=== PATIENT | male | born 1975 | race African-American/Black ===

== ENCOUNTER 2016-11-10 00:39 | Emergency (ER) | payer MEDICARE, MEDICAID | END 2016-11-10 01:44 | disposition home or self-care (01) | LOC: D.ER 00:39 | DX: M51.36 Other intervertebral disc degeneration, lumbar region (principal); F17.200 Nicotine dependence, unspecified, uncomplicated; I10 Essential (primary) hypertension; E11.9 Type 2 diabetes mellitus without complications ==

== ENCOUNTER → 2016-11-26 14:02 | Outpatient (CLI) | payer MEDICARE, MEDICAID | END | disposition home or self-care (01) | LOC: D.MRI 14:00 | DX: M54.16 Radiculopathy, lumbar region (principal) ==

== ENCOUNTER 2017-04-30 19:55 | Emergency (ER) | payer MEDICARE, MEDICAID | END 2017-04-30 22:28 | disposition home or self-care (01) | LOC: D.ER 19:55 | DX: J20.9 Acute bronchitis, unspecified (principal); J06.9 Acute upper respiratory infection, unspecified; H66.91 Otitis media, unspecified, right ear; F17.200 Nicotine dependence, unspecified, uncomplicated; I10 Essential (primary) hypertension; M51.36 Other intervertebral disc degeneration, lumbar region; E11.9 Type 2 diabetes mellitus without complications ==

== ENCOUNTER 2017-08-24 12:35 | Observation (INO) | payer MEDICARE, MEDICAID ==
[~2017-08-24] VITALS: Ht 172.7 cm; Wt 107.0 kg
--- NOTE | ~2017-08-24 | HEMODYNAMI ---
PATIENT:DEMETRI CAMPBELL MEDICAL RECORD: [id number] : 71 LOCATION:[address] [id number] ADMISSION DATE: 08/24/17 Generatedon:08/26/201713:05 Patient name: DEMETRI CAMPBELL Patient #: [id number] SSN: : 1975 Date of study: 08/26/2017 Page: Of Hemodynamic Procedure Report Patient Data Patient Demographics Procedure consent was obtained First Name: DEMETRI Gender: Male Last Name: ADRIAN : 1975 Middle Initial: L Age: 41 year(s) Patient #: [id number] Race: Black Additional ID: [id number] Contact details Address: [address] [place] [address] State: [place] City: [facility] Zip code: [address] Past Medical History Allergies: No known allergies Admission Admission Data Admission Date: 08/24/2017 Admission Time: 14:32 Room #: D2123 Lab Results Lab Result Date: 08/26/2017 Lab Result Time: 0:00 Biochemistry Name Units Result Min Max BUN mg/dl 10 --(-*--)-- 7 18 Creatinine mg/dl 0.9 --(-*--)-- 0.6 1.3 CBC Name Units Result Min Max Hemoglobin g/dl 14.6 --(-*--)-- 13.5 17.5 Procedure Procedure Types Cath Procedure Diagnostic Procedure [facility] w/Coronaries FFR/IVUS Intra-Coronary IVUS Initial PCI Procedure Coronary Stent Coronary Stent Initial Procedure Description Procedure Date Procedure Date: 08/26/2017 Procedure Start Time: 12:48 Procedure End Time: 13:04 Procedure Staff Name Function Zafar Lloyd MD Performing Physician [place] Bro RT Monitor Celio Ceja RN Nurse Gaetano Morgan RT Scrub Procedure Data Cath Procedure Fluoroscopy Diagnostic fluoroscopy Total fluoroscopy Time: 4.2 time: 4.2 min min Diagnostic fluoroscopy Total fluoroscopy dose: 722 dose: 722 mGy mGy Contrast Material Contrast Material Type Amount (ml) Isovue 300 44 Entry Location Entry Primary Successful Side Size Upsize Upsize Entry Closure Bartlett ccessful Closure Location (Fr) 1 (Fr) 2 (Fr) Remarks Device Remarks Radial Right 6 Fr Mechanical artery Short Compression Estimated blood loss: 10 ml Diagnostic catheters Device Type Used For End Catheter Placement DIAGNOSTIC [place] 110cm 5 Procedure Fr catheter ([id number]) Procedure Complications No complications Procedure Medications Medication Administration Route Dosage Oxygen NC 2 l/min Lidocaine 2% added to field 20 Heparin Flush Bag added to field 2 bags (1000units/500ml NS) 0.9% NaCl I.V. 100 ml/hr Radial Cocktail added to field 1 syringe (Verapomil 2mg/Nitro 400mcg/Heparin 1500units) Radial Cocktail I.A. 1 syringe (Verapomil 2mg/Nitro 400mcg/Heparin 1500units) Heparin Bolus I.V. 4000 units Versed I.V. 2 mg Fentanyl I.V. 100 mcg Hemodynamics Rest HGB: 14.6 (g/dl) Heart Rate: 69 (bpm) Snapshots Pre Cath Intra NCS Post Cath Vital Signs Time Heart Resp SPO2 etCO2 NIBP (mmHg) Rhythm Pain Sedation Rate (ipm) (%) (mmHg) Status Level (bpm) 12:38:21 69 19 99 25.5 150/97(126) NSR 0 (11) 10(A) , No pain 12:43:16 71 17 100 36 147/94(121) NSR 0 (11) 10(A) , No pain 12:48:03 76 14 99 39 137/88(115) NSR 0 (11) 9(A) , No pain 12:52:56 85 12 93 36 129/80(106) NSR 0 (11) 9(A) , No pain 12:57:40 89 13 94 39.8 130/80(105) NSR 0 (11) 10(A) , No pain 13:02:31 86 16 95 37.5 124/79(105) NSR 0 (11) 10(A) , No pain Medications Time Medication Route Dose Verified Delivered Reason Note s Effectiveness by by 12:39:05 Oxygen NC 2 l/min Zafar Pickens used for Prema Ceja key cutter 12:39:15 Lidocaine 2% added 20ml Zafar Stephen for local to vial Prema Lloyd MD anesthetic field 12:39:24 Heparin Flush added 2 bags Zafar Stephen used for Bag to Prema Lloyd MD procedure (1000units/500ml field NS) 12:39:34 0.9% NaCl I.V. 100 Zafar Pickens Per physician ml/hr Prema Ceja RN 12:39:43 Radial Cocktail added 1 Zafar Stephen for (Verapomil to syringe Prema Lloyd MD vasodilation 2mg/Nitro field 400mcg/Heparin 1500units) 12:41:44 Versed I.V. 2 mg Zafar Pickens for sedation Prema Ceja RN 12:41:57 Fentanyl I.V. 100 mcg Zafar Pickens for sedation Prema Ceja RN 12:48:35 Radial Cocktail I.A. 1 Zafar Stephen for (Verapomil syringe Prema Lloyd MD vasodilation 2mg/Nitro 400mcg/Heparin 1500units) 12:58:42 Heparin Bolus I.V. 4000 Zafar Pickens for units Prema Ceja anticoagulation pail bailer Log Time Note 12:22:09 Signed procedure consent form obtained from patient. 12:22:11 Time tracking: Regular hours (M-F 7:00 - 5:00) 12:22:14 Plan of Care:Hemodynamics will remain stable., Cardiac rhythm will remain stable., Comfort level will be maintained., Respiratory function will remain adequate., Patient/ family verbilizes understanding of procedure., Procedure tolerated without complication., Recovers from procedure without complications.. 12:22:23 H&P Date Dictated: 08/25/2017 Within 30 days and on chart., H&P Addendum completed by physician on day of procedure. (MUST COMPLETE FOR ALL OUTPATIENTS). 12:23:09 Lab Result : BUN 10 mg/dl 12:23:09 Lab Result : Hemoglobin 14.6 g/dl 12:23:09 Lab Result : Creatinine 0.9 mg/dl 12:23:46 Gaetano SANTOS(R) sent for patient. Start room use. 12:34:24 Patient received from PCU to CCL 1 Alert and oriented. Tansferred to table in Supine position. 12:34:25 Warm blankets applied, and dilma hugger turned on for patient comfort. 12:34:26 Correct patient and procedure confirmed by team. 12:34:26 ECG and BP/O2 sat monitors applied to patient. 12:37:13 Vital chart was started 12:38:47 Baseline sample Acquired. 12:38:52 Rhythm: sinus rhythm 12:38:53 Full Disclosure recording started 12:38:54 Pre-procedure instructions explained to patient. 12:38:54 Pre-op teaching completed and patient verbalized understanding. 12:38:56 Family in patients room. 12:38:57 Patient NPO since Midnight. 12:39:02 Patient allergic to No known allergies 12:39:05 Oxygen 2 l/min NC was administered by Celio Ceja RN; used for procedure; 12:39:05 Is the patient allergic to Iodine/contrast media? No. 12:39:06 Is patient on blood thinner?Yes 12:39:08 ACC The patient was administered the following blood thiners within the last 24 hours: ACCPlavix 12:39:09 Patient diabetic? Yes. 12:39:11 If diabetic: On Metformin? Yes 12:39:15 Lidocaine 2% 20ml vial added to field was administered by Zafar Lloyd MD; for local anesthetic; 12:39:23 PT DOES NOT KNOW LAST DOSE 12:39:24 Heparin Flush Bag (1000units/500ml NS) 2 bags added to field was administered by Zafar Lloyd MD; used for procedure; 12:39:28 Previous problem with sedation/anesthesia? No ? 12:39:32 Snore? Yes 12:39:34 0.9% NaCl 100 ml/hr I.V. was administered by Celio Ceja RN; Per physician; 12:39:34 Sleep apnea? No 12:39:39 Deviated septum? No 12:39:39 Opens mouth fully? Yes 12:39:40 Sticks out tongue? Yes 12:39:42 Airway obstruction? No ? 12:39:43 Radial Cocktail (Verapomil 2mg/Nitro 400mcg/Heparin 1500units) 1 syringe added to field was administered by Zafar Lloyd MD; for vasodilation; 12:39:44 Dentures? No ? 12:39:46 Modified Yandel's test Ulnar < 7 seconds 12:39:48 Patient pain scale 0/10 ?. 12:39:55 IV patent on arrival in right forearm with 0.9% NaCl at KVO. 12:39:58 Lab results completed and on chart. 12:40:00 Right Radial & Right Groin area was prepped with chlora-prep and draped in sterile fashion 12:40:01 Alarms reviewed by R. N. 12:40:01 Sharps counted by scrub and verified by R.N. 12:40:02 --------ALL STOP TIME OUT------ 12:40:03 Final Timeout: patient, procedure, and site verified with staff and physician. All members of the team are in agreement. 12:40:05 Right Radial & Right Groin site verified by team. 12:40:07 Physical assessment completed. ASA score P 2 - A patient with mild systemic disease as per Zafar Lloyd MD. 12:40:11 Sedation plan: IV Moderate Sedation Medication:Versed, Fentanyl 12:41:44 Versed 2 mg I.V. was administered by Celio Ceja RN; for sedation; 12:41:57 Fentanyl 100 mcg I.V. was administered by Celio Ceja RN; for sedation; 12:42:23 Use device set Radial Dx or PCI 12:42:24 ACIST Syringe (66988) opened to sterile field. 12:42:25 Bag Decanter (2001S) opened to sterile field. 12:42:29 Tegaderm 4 x 4 (1626W) opened to sterile field. 12:42:29 ACIST Manifold (74246) opened to sterile field. 12:42:30 ACIST Hand Control (13816) opened to sterile field. 12:42:31 Medline Cath Pack ([id number]) opened to sterile field. 12:42:31 DIAGNOSTIC WIRE .035 260cm J wire (244714) opened to sterile field. 12:42:32 MBrace Wrist Support ([id number]) opened to sterile field. 12:42:33 SHEATH 6Fr Prelude Radial ([id number]) opened to sterile field. 12:48:03 Zero performed for pressure channel P1 12:48:08 Procedure started. 12:48:13 Local anesthetic to right radial artery with Lidocaine 2% by Zafar Lloyd MD.INITIAL ACCESS ONLY 12:48:22 A 6 Fr Short sheath was inserted into the Right Radial artery 12:48:35 Radial Cocktail (Verapomil 2mg/Nitro 400mcg/Heparin 1500units) 1 syringe I.A. was administered by Zafar Lloyd MD; for vasodilation; 12:48:49 A DIAGNOSTIC [place] 110cm 5 Fr catheter (965167) was advanced over the wire and used for Procedure. 12:49:51 GLIDE WIRE .025 ANGLED (QG3041) opened to sterile field. 12:50:18 GLIDE WIRE USED TO ADVANCE CATHETER 12:51:11 LV gram done using CARMICHAEL 12:51:13 Injector settings: Ml/sec: 7, Volume: 15, 12:51:25 EF : 60 % 12:51:56 LCA angiography performed. 12:52:42 RCA angiography performed. 12:53:19 Catheter removed. 12:53:31 INFLATOR Merit BasixCompak (EF0334) opened to sterile field. 12:53:31 CHOICE PT Extra Support 182cm wire ([id number]) opened to sterile field. 12:53:34 Barnhart Sycuan Eagleye IVUS Catheter (51465I) opened to sterile field. 12:54:36 GUIDE 6FR AR 2.0 catheter ([id number]) opened to sterile field. 12:54:41 6 Fr AR 2 guide catheter was inserted over the wire 12:55:08 CHOICE ES 182 wire advanced. 12:55:21 Wire advanced across lesion. 12:55:45 IVUS catheter advanced over wire. 12:56:19 IVUS pass to RCA lesion performed. 12:56:38 IVUS catheter removed over wire. 12:58:42 Heparin Bolus 4000 units I.V. was administered by Celio Ceja RN; for anticoagulation; 12:59:15 Place stent Inflation Number: 1 A ZHAO RX 5.0 x 18 stent ([id number]) was prepped and advanced across the Mid RCA. The stent was deployed at 11 HIPOLITO for 0:10 (min:sec). 12:59:36 Stent catheter was removed intact over wire. 12:59:37 Wire removed. 12:59:37 Guide catheter removed. 13:00:20 Procedure ended.(Physican Out) 13:00:29 TR BAND Standard ([id number]) opened to sterile field. 13:00:39 Sheath removed intact; hemostasis achieved with Mechanical Compression to the Right Radial artery. 13:01:39 Fluoroscopy time 04.20 minutes. 13:01:42 Fluoroscopy dose: 722 mGy 13:01:42 Flurop Dose total: 722 13:01:45 Contrast amount:Isovue 300 44ml. 13:01:46 Sharps counted by scrub and verified by R.N. 13:01:48 TR band inflated with 10cc of air. 13:01:51 Post-procedure physical assessment completed. ASA score P 2 - A patient with mild systemic disease as per Zafar Lloyd MD. 13:01:55 Post procedure rhythm: sinus rhythm 13:01:57 Estimated blood loss: 10 ml 13:01:58 Post procedure instruction explained to patient.Patient verbalizes understanding. 13:01:59 Patient needs reinforcement of post procedure teaching. 13:02:28 Procedure type changed to Cath procedure, Diagnostic procedure, LHC, LHC w/Coronaries, FFR/IVUS, Intra-Coronary IVUS Initial, PCI procedure, Coronary Stent, Coronary Stent Initial 13:04:12 Procedure and supply charges have been captured, reviewed, submitted and are correct. 13:04:15 Procedure Complication : No complications 13:04:16 Vital chart was stopped 13:04:17 See physician's report for complete and final results. 13:04:21 Report given to PCU. 13:04:23 Patient transfered to PCU with Bed. 13:04:25 Procedure ended. 13:04:25 Full Disclosure recording stopped 13:04:27 End room use (Document Last) Intervention Summary Intervention Notes Time ActionType Lesion and Equipment Used Action# Pressure Duration Attributes 12:59:15 Place stent Mid RCA ZHAO RX 5.0 x 1 11 00:10 18 stent ([id number]) Device Usage Item Name Manufacture Quantity Catalog Number Hospital Part Current Minimal Lot# / Charge Number Stock Stock Serial# Code ACIST Syringe Acist 1 15602 674872 777926 010267 20 (20138) [employer] Inc Bag Decanter Microtek 1 2001S 334429 28842 300601 5 () Medical Inc. Tegaderm 4 x 4 3M 1 1626W 860766 755409 260092 5 (1626W) ACIST Manifold Acist 1 43116 882111 566760 531662 5 (37859) [employer] Systems Inc ACIST Hand Acist 1 24032 761687 091211 145347 5 Control (29280) Medical Systems Inc Medline Cath Cardinal 1 [id number] 709112 28470 887293 5 [facility] ([id number]) DIAGNOSTIC WIRE St Miguel A 1 947680 253247 122420 317647 30 .035 260cm J wire (028755) MBrace Wrist Advanced 1 140-0250-00 065218 72633 450144 5 Support Vascular ([id number]) Dynamics SHEATH 6Fr Merit 1 [id number] 397549 549560 531209 5 Prelude Radial Medical ([id number]) DIAGNOSTIC Terumo 1 40-5013 305428 808079 220417 5 [place] 110cm 5 Fr catheter (883166) GLIDE WIRE .025 Terumo 1 RD3361 056875 866532 5 ANGLED (NK3247) INFLATOR Merit Merit 1 PY9255 489841 566002 485195 15 BasixZaranga Medical (XW5779) CHOICE PT Extra [place] 1 [id number] 390317 340016 383598 5 Support 182cm Scientific wire ([id number]) Barnhart Barnhart 1 15919S 466729 392041 663116 8 Sycuan Eagleye IVUS Catheter (11521S) GUIDE 6FR AR Medtronic 1 [id number] 077902 77543 885284 1 2.0 catheter (WS9UQ83) ZHAO RX 5.0 x Medtronic 1 [id number] 340702 6956854 524412 5 [id number] 18 stent ([id number]) TR BAND Terumo 1 [id number] 001852 550754 626185 40 Standard ([id number]) Signature Audit [place] Stage Time Signature Unsigned Intra-Procedure 08/26/2017 Jamaica Bro 1:05:20 PM RT(R) Signatures Monitor : Jamaica Bro Signature : RT Date : Time : [facility] [address] [place] [address]
--- NOTE | ~2017-08-24 | CN ---
PATIENT NAME:DEMETRI BRIGGS MEDICAL RECORD: [id number] : 71 LOCATION:[address].2123 ADMIT DATE: 08/24/17 ACCOUNT: [id number] CONSULTING PHYSICIAN: LATISHA AMADOR MD REFERRING PHYSICIAN: GREGORIO DELUNA MD DATE OF CONSULTATION: 08/25/2017 DIAGNOSES: 1. Chest pain compatible with angina. 2. Family history of coronary disease. 3. Hypertension. 4. Hyperlipidemia. 5. Smoking history. HISTORY: Mr. Briggs has had multiple cardiac risk factors as above including very strong family history of coronary disease. He began having chest pain yesterday. He has continued to have episodes of chest pain today, a relatively typical anginal pain with a pressure-like band sensation across the anterior chest. REVIEW OF SYSTEMS: The patient reports easy bruising but reports no swollen glands. The patient reports no fever, no night sweats, no significant weight gain, no significant weight loss. No significant exercise tolerance. The patient reports no dry eyes, no irritation, no vision change. Patient reports no difficulty hearing and no ear pain. Patient reports no frequent nose bleeds or nose and sinus problems. Patient reports on arm pain on exertion. No shortness of breath while lying down. No history of heart murmur. Patient reports no cough, no wheezing or coughing up blood. Patient reports no abdominal pain, no vomiting. Normal appetite. No diarrhea and not vomiting blood. No nausea and no constipation. Patient reports no incontinence. No difficulty urinating. No hematuria. No increased frequency. Patient reports no muscle aches. No weakness, no arthralgias, no back pain. No swelling of the extremities. Patient reports no abnormal mole, no jaundice, no rashes. Reports no loss of consciousness. No weakness and no numbness. No seizures, dizziness, or headaches. The patient reports no depression, no sleep disturbance, feeling safe in a relationship and no alcohol abuse. Patient reports on fatigue. Reports no runny nose or sinus pressure. No itching, no hives, and no frequent sneezing. PHYSICAL EXAMINATION: GENERAL APPEARANCE: Well-nourished, well-developed, appears stated age. Level of distress, comfortable. PSYCHIATRIC: Mental status, alert, normal affect. Orientation, oriented to time, place and person. EYES: Lids and conjunctiva, noninjected. No discharge, no pallor. ENT: Lips, teeth, gums, normal dentition. Oropharynx, no cyanosis, no pallor. NECK: Carotid arteries, bilateral normal upstroke, no bruits, no thrills. JUGULAR VEINS: No jugular venous pressure or distention. CERVICAL LYMPH NODES: Nontender, nonenlarged. THYROID: Not enlarged. Nontender. No nodules. LUNGS: Respiratory effort, unlabored. CHEST: Normal curvature. No thoracic deformity. No chest wall tenderness. Percussion, resonant. Auscultation, clear. No wheezes, no rales, no rhonchi. CARDIOVASCULAR: Precordial exam, nondisplaced. No heaves or pericardial thrills. Rate and rhythm, regular. Heart sounds, normal S1, normal S2. No S3, CONSULT REPORT [id number] SERMONS,DIMETRIUS L no gallop, no rub. Systolic murmur, not heard. Diastolic murmur, not heard. EXTREMITIES: No cyanosis, no edema. Peripheral pulses, full and equal in all extremities, except as noted. No bruits appreciated. ABDOMEN: Soft, nondistended. Normal aorta. No bruit. Nontender. No masses. Liver, nontender, no hepatomegaly. Spleen, nontender, no splenomegaly. MUSCULOSKELETAL: No joint tenderness. No joint swelling. No erythema. NEUROLOGICAL: Normal gait, normal strength, normal tone. SKIN: Warm and dry. OVERALL IMPRESSION: Angina in an unstable fashion with multiple risk factors for coronary disease. We will proceed with coronary angiography. Further care depends upon findings of the angiography. TRANSINT:[id number] Voice Confirmation ID: [id number] DOCUMENT ID: [id number] LATISHA AMADOR MD at 1713 CC: [id number] DICTATION DATE: 08/25/17 1622 QUALITY LAB TECHNICIAN: 08/25/17 [address] [facility] [address] [place] [address]
--- NOTE | ~2017-08-24 | OP ---
PATIENT NAME: DEMETRI CAMPBELL MEDICAL RECORD: [id number] :71 LOCATION:D.M2 D.2123 ADMISSION DATE:08/24/17 SURGEON: LATISHA AMADOR MD DATE OF OPERATION: 08/26/2017 PROCEDURES: 1. PTCA stent RCA. 2. Intravascular ultrasound. 3. Left heart catheterization. 4. Selective coronary angiography. 5. Left ventriculogram. INDICATION: Angina and coronary artery disease. DESCRIPTION OF PROCEDURE IN DETAIL: After informed consent was obtained and after a detailed description of the risks, benefits as well as alternative therapies, the patient elected to proceed with angiogram and angioplasty. The right radial area was prepped and draped in normal sterile fashion. Right radial artery was cannulated via modified Seldinger technique with placement of 6-Bulgarian sheath. All catheters exchanged through this sheath. FINDINGS: The left ventriculogram was performed in standard 30-degree CARMICHAEL view, reveals good cardiac wall motion, ejection fraction is 60%. SELECTIVE CORONARY ANGIOGRAPHY: 1. Left main is with no significant angiographic disease. 2. Left anterior descending has no significant angiographic disease. 3. Left circumflex has no significant angiographic disease. 4. The right coronary artery is very large, dominant vessel with 75% stenosis in the mid vessel by intravascular ultrasound. PTCA STENT OF THE RCA: The stent used was a 5.0 x 18 mm Rodrick. Result was 0% residual stenosis. OVERALL IMPRESSION: Successful PTCA stent of the RCA going from 75% initial stenosis to 0% residual. TRANSINT:[id number] Voice Confirmation ID: [id number] DOCUMENT ID: [id number] LATISHA AMADOR MD at 1207 CC: [id number] DICTATION DATE: 08/26/17 1304 REGULATORY AFFAIRS INTERN: 08/26/17 1330 DIS IN 08/26/17 [place] [id number] [place] [id number]
[2017-08-24] MEDS ORDERED: GLUCOPHAGE500 MG PO (12:41)
[2017-08-24] MEDS ORDERED: GLYBURIDE2.5 MG PO (12:42)
[2017-08-24] MEDS ORDERED: VASOTEC5 MG PO (12:42)
[2017-08-24] MEDS ORDERED: PRAVACHOL20 MG PO (12:42)
[2017-08-24 13:08] LABS: BASOPHILS 0.2 % (0-2); HEMATOCRIT 41.5 % (42.0-54.0); HEMOGLOBIN 14.6 g/dL (13.5-17.5); IMMATURE GRANULOCYTES 0.2 % (0-5); LYMPHOCYTES 43.8 % (15-50); MCH 30.5 pg (26.0-34.0); MCHC 35.2 g/dL (31.0-37.0); MCV 86.6 fL (80.0-100.0); MEAN PLATELET VOLUME 9.6 fL (7.4-10.4); MONOCYTES 7.1 % (2-11); NEUTROPHILS 46.7 % (40-80); PLATELET COUNT 243 10x3/uL (130-400); RBC 4.79 10x6/uL (4.20-6.10); RDW 13.3 % (11.5-14.5)
[2017-08-24 13:16] LABS: APTT 24.9 SECONDS (22.8-39.4); INR 0.96 (0.85-1.17); PROTIME 12.4 SECONDS (11.6-15.0)
[2017-08-24 13:32] LABS: ALBUMIN 3.5 g/dL (3.4-5.0); ALKALINE PHOSPHATASE 115 U/L (46-116); ALT (SGPT) 33 U/L (10-68); CALC OSMOLALITY 286 mosm/kg (275-300); CALCIUM 8.8 mg/dL (8.5-10.1); CARBON DIOXIDE 26.9 mmol/L (21.0-32.0); CHLORIDE - SERUM 101 mmol/L (98-107); CKMB 1.2 U/L (0.0-3.6); CREATINE KINASE 132 UL (21-232); CREATININE - SERUM 0.8 mg/dL (0.6-1.3); PRO BNP 15 pg/mL (0-125); PROTEIN - SERUM 7.2 g/dL (6.4-8.2); SODIUM 136 mmol/L (136-145); TROPONIN-I < 0.017 ng/mL (0.000-0.060); UREA NITROGEN 6 mg/dL (7-18); eGFR NON AFRICAN AMERICAN > 90 mL/min (90-120)
[2017-08-24 13:35] LABS: GLUCOSE 410 mg/dL (74-106)
[2017-08-24 16:09] VITALS: BP 131/81; BMI 36.5
[2017-08-24 20:30] VITALS: BP 147/91
[2017-08-25 04:30] VITALS: BP 138/102
[2017-08-25 06:58] LABS: BASOPHILS 0.2 % (0-2); EOSINOPHILS 3.5 % (0-7); HEMATOCRIT 41.8 % (42.0-54.0); HEMOGLOBIN 14.6 g/dL (13.5-17.5); IMMATURE GRANULOCYTES 0.1 % (0-5); MCH 30.2 pg (26.0-34.0); MCHC 34.9 g/dL (31.0-37.0); MCV 86.5 fL (80.0-100.0); MEAN PLATELET VOLUME 9.3 fL (7.4-10.4); MONOCYTES 9.5 % (2-11); NEUTROPHILS 48.7 % (40-80); PLATELET COUNT 220 10x3/uL (130-400); RBC 4.83 10x6/uL (4.20-6.10); RDW 13.4 % (11.5-14.5); WBC 8.3 10x3/uL (4.8-10.8)
[2017-08-25 07:06] LABS: CALCIUM 8.8 mg/dL (8.5-10.1); CARBON DIOXIDE 27.7 mmol/L (21.0-32.0); CHLORIDE - SERUM 102 mmol/L (98-107); CREATININE - SERUM 0.8 mg/dL (0.6-1.3); POTASSIUM - SERUM 4.1 mmol/L (3.5-5.1); SODIUM 136 mmol/L (136-145); eGFR NON AFRICAN AMERICAN > 90 mL/min (90-120)
[2017-08-25 07:08] LABS: CALC OSMOLALITY 281 mosm/kg (275-300); GLUCOSE 309 mg/dL (74-106); UREA NITROGEN 8 mg/dL (7-18)
[2017-08-25 08:46] VITALS: BP 142/92
[2017-08-25 12:36] VITALS: BP 154/95
[2017-08-25 12:52] VITALS: Ht 172.7 cm; Wt 107.0 kg
[2017-08-25 16:34] VITALS: BP 153/92
[2017-08-25 19:59] VITALS: BP 155/92
[2017-08-26 01:09] VITALS: BP 134/88
[2017-08-26 06:02] LABS: BASOPHILS 0.3 % (0-2); EOSINOPHILS 2.6 % (0-7); HEMATOCRIT 44.1 % (42.0-54.0); HEMOGLOBIN 15.4 g/dL (13.5-17.5); IMMATURE GRANULOCYTES 0.2 % (0-5); LYMPHOCYTES 39.7 % (15-50); MCH 30.3 pg (26.0-34.0); MCHC 34.9 g/dL (31.0-37.0); MCV 86.6 fL (80.0-100.0); MEAN PLATELET VOLUME 9.6 fL (7.4-10.4); MONOCYTES 7.2 % (2-11); PLATELET COUNT 225 10x3/uL (130-400); RBC 5.09 10x6/uL (4.20-6.10); RDW 13.2 % (11.5-14.5)
[2017-08-26 06:05] VITALS: BP 147/92
[2017-08-26 06:38] LABS: ALBUMIN 3.3 g/dL (3.4-5.0); ALKALINE PHOSPHATASE 111 U/L (46-116); CALC OSMOLALITY 286 mosm/kg (275-300); CALCIUM 8.8 mg/dL (8.5-10.1); CARBON DIOXIDE 28.5 mmol/L (21.0-32.0); CHLORIDE - SERUM 102 mmol/L (98-107); CREATININE - SERUM 0.9 mg/dL (0.6-1.3); GLUCOSE 310 mg/dL (74-106); POTASSIUM - SERUM 3.9 mmol/L (3.5-5.1); SODIUM 138 mmol/L (136-145); UREA NITROGEN 10 mg/dL (7-18); eGFR NON AFRICAN AMERICAN > 90 mL/min (90-120)
[2017-08-26 06:39] LABS: ALT (SGPT) 24 U/L (10-68)
[2017-08-26 07:03] LABS: WBC 11.1 10x3/uL (4.8-10.8)
[2017-08-26] MEDS ORDERED: CARDIZEM CD120 MG PO (14:02)
[2017-08-26] MEDS ORDERED: ASPIRIN81 MG PO (16:39)
[2017-08-26] MEDS ORDERED: PLAVIX75 MG PO (16:40)
[2017-08-26 17:33] VITALS: BP 150/75
== END 2017-08-26 18:40 | disposition home or self-care (01) ==
LOC: D.ER 12:35 → D.M2 14:32 → OBSVTIME 14:33 → D.M2 08-26 18:40
PROVIDERS: Family Medicine
DX: I25.119 Atherosclerotic heart disease of native coronary artery with unspecified angina pectoris (principal); I10 Essential (primary) hypertension; E78.5 Hyperlipidemia, unspecified; Z87.891 Personal history of nicotine dependence
CPT/HCPCS: 92978; 93458; C9600